=== PATIENT | female | born 1980 | race Two or more races ===

== ENCOUNTER 2019-01-22 06:13 | Inpatient (IN) | payer SELFPAY ==
[~2019-01-22] VITALS: Ht 172.7 cm; Wt 81.6 kg
[2019-01-22] VITALS (11 sets, daily range): BP systolic 106–142; BP diastolic 66–85
[2019-01-22] MEDS ORDERED: fentaNYL PF VIAL 100 MCG/2 ML VIAL IV ONE (06:45)
[2019-01-22] MEDS ORDERED: LIDO:MAALOX 1:1 20 ML SINGLE DOSE. SWSW ONE (06:45)
--- NOTE | 2019-01-22 06:48 | PHYS DOC ---
Adult General Chief Complaint Chief Complaint: ABDOMINAL PAIN HPI HPI Patient is a Micronesian speaking 38 year old female who presents with abdominal pain. Onset was last night at 5pm. She states the pain is located in the epigastric area. The pain has been constant and she describes the pain as burning. Nonradiating and rated a 10/10. This has never happened before. She complains of nausea and vomiting x6. Denies diarrhea, recent illness, fever, chills, CP, or SOA. [] Review of Systems Review of Systems Constitutional: Denies fever or chills [] Eyes: Denies change in visual acuity, redness, or eye pain [] HENT: Denies nasal congestion or sore throat [] Respiratory: Denies cough or shortness of breath [] Cardiovascular: No additional information not addressed in HPI [] GI: Abdominal pain, nausea, vomiting. Denies bloody stools or diarrhea or hematemesis [] : Denies dysuria or hematuria [] Musculoskeletal: Denies back pain or joint pain [] Integument: Denies rash or skin lesions [] Neurologic: Denies headache, focal weakness or sensory changes [] Endocrine: Denies polyuria or polydipsia [] All other systems were reviewed and found to be within normal limits, except as documented in this note. Current Medications Current Medications Current Medications Medications (Trade) Dose Ordered Sig/Murali Start Time Stop Time Status Last Admin Dose Admin Fentanyl Citrate (Fentanyl 2ml Vial) 50 mcg 1X ONCE 01/22/19 06:45 01/22/19 06:47 DC 01/22/19 07:24 50 MCG Info (CONTRAST GIVEN -- Rx MONITORING) 1 each PRN DAILY PRN 01/22/19 08:15 01/24/19 08:14 Iohexol (Omnipaque 300 Mg/ml) 75 ml 1X ONCE 01/22/19 08:15 01/22/19 08:16 DC 01/22/19 08:22 75 ML Lactobacillus Rhamnosus (Culturelle) 1 cap BID 01/22/19 10:00 Morphine Sulfate (Morphine Sulfate) 4 mg PRN Q2HR PRN 01/22/19 09:15 01/23/19 09:14 Multi-Ingredient Mouthwash/Gargle (Gi Cocktail) 20 ml 1X ONCE 01/22/19 06:45 01/22/19 06:47 DC 01/22/19 07:26 20 ML Ondansetron HCl (Zofran) 4 mg PRN Q8HRS PRN 01/22/19 09:15 01/23/19 09:14 Piperacillin Sod/ Tazobactam Sod (Zosyn Per Pharmacy) 1 each PRN DAILY PRN 01/22/19 09:15 Piperacillin Sod/ Tazobactam Sod 3.375 gm/Sodium Chloride 50 ml @ 100 mls/hr Q6HRS 01/22/19 10:00 Sodium Chloride 1,000 ml @ 100 mls/hr Q10H 01/22/19 09:11 01/23/19 09:10 Allergies Allergies Allergies Coded Allergies Type Severity Reaction Last Updated Verified No Known Drug Allergies 01/22/19 No Physical Exam Physical Exam Constitutional: Well developed, well nourished, mild distress, non-toxic appearance. [] HENT: Normocephalic, atraumatic, bilateral external ears normal, oropharynx moist, no oral exudates, nose normal. [] Eyes: PERRLA, EOMI, conjunctiva normal, no discharge. [] Neck: Normal range of motion, no tenderness, supple, no stridor. [] Cardiovascular:Heart rate regular rhythm, no murmur [] Lungs & Thorax: Bilateral breath sounds clear to auscultation [] Abdomen: Bowel sounds normal, soft, tenderness to palpation at epigastric and RUQ AND ON REEXAM DID HAVE DEVELOPING RLQ TTP, no masses, no pulsatile masses. [ ] Skin: Warm, dry, no erythema, no rash. [] Back: No tenderness, no CVA tenderness. [] Extremities: No tenderness, no cyanosis, no clubbing, ROM intact, no edema. [] Neurologic: Alert and oriented X 3, normal motor function, normal sensory function, no focal deficits noted. [] Psychologic: Affect normal, judgement normal, mood normal. [] Current Patient Data Vital Signs Vital Signs Date Time Temp Pulse Resp B/P (MAP) Pulse Ox O2 Delivery O2 Flow Rate FiO2 01/22/19 07:24 82 17 133/81 (98) 98 Room Air 01/22/19 06:20 97.6 97.6 Lab Values Laboratory Tests Test 01/22/19 06:20 01/22/19 06:28 01/22/19 06:40 Urine Collection Type Unknown Urine Color Yellow Urine Clarity Cloudy Urine pH 8.0 Urine Specific [place] 1.025 Urine Protein 30 mg/dL (NEG-TRACE) Urine Glucose (UA) 100 mg/dL (NEG) Urine Ketones (Stick) 40 mg/dL (NEG) Urine Blood Small (NEG) Urine Nitrite Negative (NEG) Urine Bilirubin Negative (NEG) Urine Urobilinogen Dipstick 0.2 mg/dL (0.2 mg/dL) Urine Leukocyte Esterase Small (NEG) Urine RBC 1-2 /HPF (0-2) Urine WBC 1-4 /HPF (0-4) Urine Squamous Epithelial Cells Few /LPF Urine Amorphous Sediment Present /HPF Urine Bacteria Few /HPF (0-FEW) Urine Mucus Slight /LPF POC Urine HCG, Qualitative Hcg negative (Negative) White Blood Count 19.5 x10^3/uL (4.0-11.0) H Red Blood Count 4.50 x10^6/uL (3.50-5.40) Hemoglobin 14.0 g/dL (12.0-15.5) Hematocrit 40.8 % (36.0-47.0) Mean Corpuscular Volume 91 fL (79-100) Mean Corpuscular Hemoglobin 31 pg (25-35) Mean Corpuscular Hemoglobin Concent 34 g/dL (31-37) Red Cell Distribution Width 13.2 % (11.5-14.5) Platelet Count 286 x10^3/uL (140-400) Neutrophils (%) (Auto) 90 % (31-73) H Lymphocytes (%) (Auto) 4 % (24-48) L Monocytes (%) (Auto) 6 % (0-9) Eosinophils (%) (Auto) 0 % (0-3) Basophils (%) (Auto) 0 % (0-3) Neutrophils # (Auto) 17.6 x10^3uL (1.8-7.7) H Lymphocytes # (Auto) 0.7 x10^3/uL (1.0-4.8) L Monocytes # (Auto) 1.1 x10^3/uL (0.0-1.1) Eosinophils # (Auto) 0.0 x10^3/uL (0.0-0.7) Basophils # (Auto) 0.0 x10^3/uL (0.0-0.2) Platelet Estimate Pending Sodium Level 135 mmol/L (136-145) L Potassium Level 3.1 mmol/L (3.5-5.1) L Chloride Level 99 mmol/L (98-107) Carbon Dioxide Level 23 mmol/L (21-32) Anion Gap 13 (6-14) Blood Urea Nitrogen 10 mg/dL (7-20) Creatinine 0.6 mg/dL (0.6-1.0) Estimated GFR (Cockcroft-Gault) 111.3 BUN/Creatinine Ratio 17 (6-20) Glucose Level 183 mg/dL (70-99) H Calcium Level 8.7 mg/dL (8.5-10.1) Total Bilirubin 0.5 mg/dL (0.2-1.0) Aspartate Amino Transferase (AST) 13 U/L (15-37) L Alanine Aminotransferase (ALT) 24 U/L (14-59) Alkaline Phosphatase 90 U/L (46-116) Troponin I Quantitative < 0.017 ng/mL (0.000-0.055) Total Protein 8.0 g/dL (6.4-8.2) Albumin 3.7 g/dL (3.4-5.0) Albumin/Globulin Ratio 0.9 (1.0-1.7) L Lipase 66 U/L (73-393) L Laboratory Tests 01/22/19 06:40 Laboratory Tests 01/22/19 06:40 EKG EKG [] Radiology/Procedures Radiology/Procedures ABDOMEN LTD Impressions: IMPRESSION: 1. There has been a cholecystectomy. 2. Otherwise essentially unremarkable sonographic survey of the right upper quadrant. IMPRESSION: 1. Mild acute appendicitis. 2. Transverse colon diverticulosis without diverticulitis. Electronically signed by: Maurice Interiano MD (01/22/2019 8:47 AM) [id number] DICTATED and SIGNED BY: MAURICE INTERIANO MD DATE: 01/22/19 0847 Course & Med Decision Making Course & Med Decision Making Pertinent Labs and Imaging studies reviewed. (See chart for details) []Acute appendicitis initially came in with epigastric pains we did an ultrasound but she has had her gallbladder removed white count 19 CT shows 10 mm appendix Zosyn was ordered as per Dr. iCfuentes at 9:20 AM for consult Admit to Dr. Therese Marshall Disclaimer Joanna Disclaimer This electronic medical record was generated, in whole or in part, using a voice recognition dictation system. Departure Departure Impression: Primary Impression: Appendicitis Disposition: ADMITTED INPATIENT Admitting Physician: Jennifer Saleh Condition: STABLE Referrals: NO PCP (PCP) CLAU WHALEN MD Jan 22, 2019 06:48
[2019-01-22 06:53] LABS: BASO % 0 % (0-3); EOS % 0 % (0-3); HEMATOCRIT 40.8 % (36.0-47.0); LYMPH # 0.7 x10^3/uL (1.0-4.8); LYMPH % 4 % (24-48); MEAN CORPUSCULAR HEMOGLOBIN 31 pg (25-35); MEAN CORPUSCULAR HGB CONC 34 g/dL (31-37); MEAN CORPUSCULAR VOLUME 91 fL (79-100); MONO # 1.1 x10^3/uL (0.0-1.1); MONO % 6 % (0-9); NEUT # 17.6 x10^3uL (1.8-7.7); NEUT % 90 % (31-73); PLATELET COUNT 286 x10^3/uL (140-400); RED CELL DISTRIBUTION WIDTH 13.2 % (11.5-14.5); WHITE BLOOD COUNT 19.5 x10^3/uL (4.0-11.0)
[2019-01-22 06:56] LABS: BILIRUBIN,URINE NEGATIVE (NEG); CLARITY,URINE CLOUDY; COLOR,URINE YELLOW; NITRITE,URINE NEGATIVE (NEG); PROTEIN,URINE 30 mg/dL (NEG-TRACE); UROBILINOGEN,URINE 0.2 mg/dL (0.2 mg/dL)
[2019-01-22 07:03] LABS: CALCIUM 8.7 mg/dL (8.5-10.1); CREATININE 0.6 mg/dL (0.6-1.0); GFR 111.3; POTASSIUM 3.1 mmol/L (3.5-5.1)
[2019-01-22 07:10] LABS: ALBUMIN 3.7 g/dL (3.4-5.0); ALBUMIN/GLOBULIN RATIO 0.9 (1.0-1.7); TOTAL BILIRUBIN 0.5 mg/dL (0.2-1.0)
[2019-01-22 07:10] LABS: AMORPHOUS SEDIMENT,UR PRESENT /HPF; BACTERIA,URINE FEW /HPF (0-FEW); SQUAMOUS EPITHELIAL CELL,UR FEW /LPF
--- NOTE | 2019-01-22 07:28 | RAD ---
CLINICAL HISTORY: RUQ PAIN COMPARISON: None available. TECHNIQUE: Limited ultrasound examination of the right upper quadrant of the abdomen was performed FINDINGS: Liver: The liver measures 17.7 cm in length in the right mid clavicular line. Hepatic echogenicity is normal and the margin is smooth. There is no focal abnormality of the liver. Portal and hepatic venous flow is confirmed with normal waveforms. Gallbladder/Biliary: There has been a cholecystectomy. Common bile duct measures 0.5 cm. The right kidney measures 11.4 cm in bipolar length. No focal renal lesion or hydronephrosis. There is no free fluid in the subhepatic space. Midline structures including the pancreas and IVC are obscured by overlying bowel gas. IMPRESSION: 1. There has been a cholecystectomy. 2. Otherwise essentially unremarkable sonographic survey of the right upper quadrant. Electronically signed by: Hima Mak MD (01/22/2019 7:25 AM) [id number]
[2019-01-22] MEDS ORDERED: IOHEXOL 300 MG/ML 100ML VIAL. IV ONE (08:15)
[2019-01-22] MEDS ORDERED: CONTRAST GIVEN. MC PRN (08:15)
--- NOTE | 2019-01-22 08:25 | EKG ---
[facility] [address] [place] [address] Test Date: 2019-01-22 Test Time: 06:52:05 Pat Name: SHASHI TOLENTINO Department: Room: Gender: F Store Mgr: : [id number] Requested By: CLAU WHALEN Order Number: [id number] Reading MD: Caleb Michele MD Measurements Intervals [place] Rate: 84 P: 37 DE: 146 QRS: 43 QRSD: 90 T: 7 QT: 358 QTc: 426 Interpretive Statements SINUS RHYTHM NON SPECIFIC T ABNORMALITY Electronically Signed On 01-26-2019 14:54:41 CDT by Caleb Michele MD
--- NOTE | 2019-01-22 08:49 | RAD ---
PQRS Compliance Statement: One or more of the following individualized dose reduction techniques were utilized for this examination: 1. Automated exposure control 2. Adjustment of the mA and/or kV according to patient size 3. Use of iterative reconstruction technique CT ABD PELV W/ IV CONTRST ONLY Clinical Indication: EPIGASTRIC PAIN AND VOMITING X 1700 Comparison: None. Technique: Helical CT imaging of the abdomen and pelvis is performed after 75 cc of Omnipaque 300 IV contrast. Oral contrast not given. Findings: Lung bases essentially clear. Cardiac size is normal. Cholecystectomy. Liver, spleen, pancreas, adrenal glands, abdominal aorta, and kidneys are normal. Stomach unremarkable. There is no dilated small bowel. The appendix caliber is dilated measuring up to 10 mm. Wall is ill-defined. There is mild periappendiceal inflammation. There is no periappendiceal abscess. There is no perforation. Diverticula of the transverse colon without inflammation. No colon wall thickening. No abdominal adenopathy or free fluid. Urinary bladder is normal. IUD in the uterus. Right ovary is not seen. The left is unremarkable. There is a fat-containing periumbilical hernia. There is no pelvic free fluid. There is minimal grade 1 retrolisthesis of L5 on S1. Bilateral osteitis condensans ilii. Small probable bone island of the left superior acetabulum. IMPRESSION: 1. Mild acute appendicitis. 2. Transverse colon diverticulosis without diverticulitis. Electronically signed by: Maurice Interiano MD (01/22/2019 8:47 AM) [id number]
[2019-01-22] MEDS ORDERED: BUPIVACAINE-EPI 0.25%-1:200000 MPF 30 ML VIAL. ONE (09:04)
[2019-01-22] MEDS: IV NORMAL SALINE 1000ML BAG 1,000 ML IV SCH ×2 (09:11→19:11)
[2019-01-22] MEDS ORDERED: PIP/TAZO PER PHARMACY MC PRN (09:15)
[2019-01-22] MEDS ORDERED: MORPHINE SULFATE 4 MG/ML VIAL. IV PRN (09:15)
[2019-01-22] MEDS ORDERED: ONDANSETRON PF 4 MG/2 ML VIAL. IV PRN ×3 (09:15→12:00)
[2019-01-22] MEDS ORDERED: IV RINGERS,LACTATED 1000ML 1,000 ML IV SCH (09:37)
[2019-01-22] MEDS ORDERED: LIDOCAINE 1% PF 2 ML VIAL. ID PRN (09:45)
[2019-01-22] MEDS ORDERED: fentaNYL PF VIAL 100 MCG/2 ML VIAL IV PRN ×2 (09:45)
[2019-01-22] MEDS ORDERED: HYDROmorphone 2 MG/ML VIAL IV PRN (09:45)
[2019-01-22] MEDS ORDERED: PROCHLORPERAZINE 10 MG/2 ML VIAL. IV PRN (09:45)
[2019-01-22] MEDS ORDERED: MORPHINE SULFATE 2 MG/ML VIAL. IV PRN ×2 (09:45→12:00)
[2019-01-22] MEDS: PIPERACILLIN/TAZOBACTAM 3.375 GM in IV NORMAL SALINE 50ML 50 ML IV SCH ×3 (09:58→23:28)
[2019-01-22] MEDS: LACTOBACILLUS RHAMNOSUS GG 1 CAPSULE. PO SCH ×2 (10:00→20:51)
[2019-01-22] MEDS ORDERED: MIDAZOLAM HCL/PF 2 MG/2 ML VIAL. ONE (10:16)
[2019-01-22] MEDS ORDERED: fentaNYL PF VIAL 100 MCG/2 ML VIAL ONE ×2 (10:17→11:59)
[2019-01-22] MEDS ORDERED: ROCURONIUM 50 MG/5 ML VIAL. ONE (10:17)
[2019-01-22] MEDS ORDERED: SUCCINYLCHOLINE 200 MG/10 ML VIAL. ONE (10:18)
[2019-01-22] MEDS ORDERED: DEXAMETHASONE SOD PHOS 20 MG/5 ML VIAL. ONE (10:54)
--- NOTE | 2019-01-22 10:54 | PDOC2 ---
CONSULT Date of Consult Date of Consult DATE: 01/22/19 TIME: 10:51 Reason for Consult Reason for Consult: Abdominal pain nausea vomiting Referring Physician Referring Physician: Therese Identification/Chief Complaint Chief Complaint Abdominal pain Source Source: Patient History of Present Illness Reason for Visit: Spoke to patient via patch driller 38-year-old female speaks Kosovan only complaining 24-hour history of right lower quadrant abdominal pain nausea and vomiting Past Medical History Cardiovascular: No pertinent hx Pulmonary: No pertinent hx GI: No pertinent hx Heme/Onc: No pertinent hx Hepatobiliary: No pertinent hx Psych: No pertinent hx Rheumatologic: No pertinent hx Infectious disease: No pertinent hx ENT: No pertinent hx Endocrine: No pertinent hx Dermatology: No pertinent hx Past Surgical History Past Surgical History: Cholecystectomy, Other (removal of ovary) Family History Family History: No Significant Social History No ALCOHOL: none Drugs: None Lives: with Family Current Problem List Problem List Problems Medical Problems: (1) Appendicitis Status: Acute Current Medications Current Medications Current Medications Multi-Ingredient Mouthwash/Gargle (Gi Cocktail) 20 ml 1X ONCE SWSW Last administered on 01/22/19at 07:26; Start 01/22/19 at 06:45; Stop 01/22/19 at 06:47; Status DC Fentanyl Citrate (Fentanyl 2ml Vial) 50 mcg 1X ONCE IV Last administered on 01/22/19at 07:24; Start 01/22/19 at 06:45; Stop 01/22/19 at 06:47; Status DC Iohexol (Omnipaque 300 Mg/ml) 75 ml 1X ONCE IV Last administered on 01/22/19at 08:22; Start 01/22/19 at 08:15; Stop 01/22/19 at 08:16; Status DC Info (CONTRAST GIVEN -- Rx MONITORING) 1 each PRN DAILY PRN MC SEE COMMENTS; Start 01/22/19 at 08:15; Stop 01/24/19 at 08:14 Ondansetron HCl (Zofran) 4 mg PRN Q8HRS PRN IV NAUSEA/VOMITING; Start 01/22/19 at 09:15; Stop 01/23/19 at 09:14 Morphine Sulfate (Morphine Sulfate) 4 mg PRN Q2HR PRN IV PAIN; Start 01/22/19 at 09:15; Stop 01/23/19 at 09:14 Sodium Chloride 1,000 ml @ 100 mls/hr Q10H IV ; Start 01/22/19 at 09:11; Stop at 09:10 Piperacillin Sod/ Tazobactam Sod (Zosyn Per Pharmacy) 1 each PRN DAILY PRN MC SEE COMMENTS; Start 01/22/19 at 09:15 Piperacillin Sod/ Tazobactam Sod 3.375 gm/Sodium Chloride 50 ml @ 100 mls/hr Q6HRS IV Last administered on 01/22/19at 09:58; Start 01/22/19 at 10:00 Lactobacillus Rhamnosus (Culturelle) 1 cap BID PO ; Start 01/22/19 at 10:00 Ondansetron HCl (Zofran) 4 mg PRN Q6HRS PRN IV NAUSEA/VOMITING; Start 01/22/19 at 09:45; Stop 01/22/19 at 18:00 Fentanyl Citrate (Fentanyl 2ml Vial) 25 mcg PRN Q5MIN PRN IV MILD PAIN; Start 01/22/19 at 09:45; Stop 01/22/19 at 20:00 Fentanyl Citrate (Fentanyl 2ml Vial) 50 mcg PRN Q5MIN PRN IV MODERATE TO SEVERE PAIN; Start 01/22/19 at 09:45; Stop 01/22/19 at 20:00 Morphine Sulfate (Morphine Sulfate) 1 mg PRN Q10MIN PRN IV SEVERE PAIN; Start 01/22/19 at 09:45; Stop 01/22/19 at 20:00 Ringer's Solution 1,000 ml @ 30 mls/hr Q24H IV Last administered on 01/22/19at 09:58; Start 01/22/19 at 09:37; Stop 01/22/19 at 21:36 Lidocaine HCl (Xylocaine-Mpf 1% 2ml Vial) 2 ml 1X PRN PRN ID IV START; Start at 09:45; Stop 01/22/19 at 20:00 Hydromorphone HCl (Dilaudid) 0.5 mg PRN Q10MIN PRN IV SEV PAIN, Second choice; Start 01/22/19 at 09:45; Stop 01/22/19 at 20:00 Prochlorperazine Edisylate (Compazine) 5 mg PACU PRN PRN IV NAUSEA, MRX1; Start 01/22/19 at 09:45; Stop 01/22/19 at 20:00 Bupivacaine HCl/ Epinephrine Bitart (Sensorcaine-Epi 0.25%-1:129195 Mpf) 30 ml STK-MED ONCE .ROUTE ; Start 01/22/19 at 09:04; Stop 01/22/19 at 10:04; Status DC Midazolam HCl (Versed) 2 mg STK-MED ONCE .ROUTE ; Start 01/22/19 at 10:16; Stop 01/22/19 at 10:17; Status DC Fentanyl Citrate (Fentanyl 2ml Vial) 100 mcg STK-MED ONCE .ROUTE ; Start at 10:17; Stop 01/22/19 at 10:18; Status DC Rocuronium [place] (Zemuron) 50 mg STK-MED ONCE .ROUTE ; Start 01/22/19 at 10:17 ; Stop 01/22/19 at 10:18; Status DC Succinylcholine Chloride (Anectine) 200 mg STK-MED ONCE .ROUTE ; Start 01/22/19 at 10:18; Stop 01/22/19 at 10:19; Status DC Allergies Allergies: Coded Allergies: No Known Drug Allergies (Unverified , 01/22/19) ROS Gastrointestinal: Yes Nausea, Yes Vomiting, Yes Abdominal Pain Physical Exam General: Alert, Oriented X3, Cooperative, mild distress HEENT: Atraumatic, PERRLA, EOMI Lungs: Clear to auscultation, Normal air movement Heart: Regular rate, No murmurs Abdomen: Normal bowel sounds, Soft, Other (tender to palpation right lower quadrant) Extremities: No edema Skin: No significant lesion Neuro: Normal speech Psych/Mental Status: Mental status NL Vitals VITALS Vital Signs Date Time Temp Pulse Resp B/P (MAP) Pulse Ox O2 Delivery O2 Flow Rate FiO2 01/22/19 07:54 72 16 120/78 (92) 97 Room Air 01/22/19 06:20 97.6 97.6 Labs Labs Laboratory Tests Test 01/22/19 06:20 01/22/19 06:28 01/22/19 06:40 Urine Collection Type Unknown Urine Color Yellow Urine Clarity Cloudy Urine pH 8.0 Urine Specific [place] 1.025 Urine Protein 30 mg/dL (NEG-TRACE) Urine Glucose (UA) 100 mg/dL (NEG) Urine Ketones (Stick) 40 mg/dL (NEG) Urine Blood Small (NEG) Urine Nitrite Negative (NEG) Urine Bilirubin Negative (NEG) Urine Urobilinogen Dipstick 0.2 mg/dL (0.2 mg/dL) Urine Leukocyte Esterase Small (NEG) Urine RBC 1-2 /HPF (0-2) Urine WBC 1-4 /HPF (0-4) Urine Squamous Epithelial Cells Few /LPF Urine Amorphous Sediment Present /HPF Urine Bacteria Few /HPF (0-FEW) Urine Mucus Slight /LPF Bedside Urine HCG, Qualitative Hcg negative (Negative) White Blood Count 19.5 x10^3/uL (4.0-11.0) Red Blood Count 4.50 x10^6/uL (3.50-5.40) Hemoglobin 14.0 g/dL (12.0-15.5) Hematocrit 40.8 % (36.0-47.0) Mean Corpuscular Volume 91 fL (79-100) Mean Corpuscular Hemoglobin 31 pg (25-35) Mean Corpuscular Hemoglobin Concent 34 g/dL (31-37) Red Cell Distribution Width 13.2 % (11.5-14.5) Platelet Count 286 x10^3/uL (140-400) Neutrophils (%) (Auto) 90 % (31-73) Lymphocytes (%) (Auto) 4 % (24-48) Monocytes (%) (Auto) 6 % (0-9) Eosinophils (%) (Auto) 0 % (0-3) Basophils (%) (Auto) 0 % (0-3) Neutrophils # (Auto) 17.6 x10^3uL (1.8-7.7) Lymphocytes # (Auto) 0.7 x10^3/uL (1.0-4.8) Monocytes # (Auto) 1.1 x10^3/uL (0.0-1.1) Eosinophils # (Auto) 0.0 x10^3/uL (0.0-0.7) Basophils # (Auto) 0.0 x10^3/uL (0.0-0.2) Sodium Level 135 mmol/L (136-145) Potassium Level 3.1 mmol/L (3.5-5.1) Chloride Level 99 mmol/L (98-107) Carbon Dioxide Level 23 mmol/L (21-32) Anion Gap 13 (6-14) Blood Urea Nitrogen 10 mg/dL (7-20) Creatinine 0.6 mg/dL (0.6-1.0) Estimated GFR (Cockcroft-Gault) 111.3 BUN/Creatinine Ratio 17 (6-20) Glucose Level 183 mg/dL (70-99) Calcium Level 8.7 mg/dL (8.5-10.1) Total Bilirubin 0.5 mg/dL (0.2-1.0) Aspartate Amino Transf (AST/SGOT) 13 U/L (15-37) Alanine Aminotransferase (ALT/SGPT) 24 U/L (14-59) Alkaline Phosphatase 90 U/L (46-116) Troponin I Quantitative < 0.017 ng/mL (0.000-0.055) Total Protein 8.0 g/dL (6.4-8.2) Albumin 3.7 g/dL (3.4-5.0) Albumin/Globulin Ratio 0.9 (1.0-1.7) Lipase 66 U/L (73-393) Laboratory Tests Test 01/22/19 06:20 01/22/19 06:28 01/22/19 06:40 Urine Collection Type Unknown Urine Color Yellow Urine Clarity Cloudy Urine pH 8.0 Urine Specific [place] 1.025 Urine Protein 30 mg/dL (NEG-TRACE) Urine Glucose (UA) 100 mg/dL (NEG) Urine Ketones (Stick) 40 mg/dL (NEG) Urine Blood Small (NEG) Urine Nitrite Negative (NEG) Urine Bilirubin Negative (NEG) Urine Urobilinogen Dipstick 0.2 mg/dL (0.2 mg/dL) Urine Leukocyte Esterase Small (NEG) Urine RBC 1-2 /HPF (0-2) Urine WBC 1-4 /HPF (0-4) Urine Squamous Epithelial Cells Few /LPF Urine Amorphous Sediment Present /HPF Urine Bacteria Few /HPF (0-FEW) Urine Mucus Slight /LPF Bedside Urine HCG, Qualitative Hcg negative (Negative) White Blood Count 19.5 x10^3/uL (4.0-11.0) Red Blood Count 4.50 x10^6/uL (3.50-5.40) Hemoglobin 14.0 g/dL (12.0-15.5) Hematocrit 40.8 % (36.0-47.0) Mean Corpuscular Volume 91 fL (79-100) Mean Corpuscular Hemoglobin 31 pg (25-35) Mean Corpuscular Hemoglobin Concent 34 g/dL (31-37) Red Cell Distribution Width 13.2 % (11.5-14.5) Platelet Count 286 x10^3/uL (140-400) Neutrophils (%) (Auto) 90 % (31-73) Lymphocytes (%) (Auto) 4 % (24-48) Monocytes (%) (Auto) 6 % (0-9) Eosinophils (%) (Auto) 0 % (0-3) Basophils (%) (Auto) 0 % (0-3) Neutrophils # (Auto) 17.6 x10^3uL (1.8-7.7) Lymphocytes # (Auto) 0.7 x10^3/uL (1.0-4.8) Monocytes # (Auto) 1.1 x10^3/uL (0.0-1.1) Eosinophils # (Auto) 0.0 x10^3/uL (0.0-0.7) Basophils # (Auto) 0.0 x10^3/uL (0.0-0.2) Sodium Level 135 mmol/L (136-145) Potassium Level 3.1 mmol/L (3.5-5.1) Chloride Level 99 mmol/L (98-107) Carbon Dioxide Level 23 mmol/L (21-32) Anion Gap 13 (6-14) Blood Urea Nitrogen 10 mg/dL (7-20) Creatinine 0.6 mg/dL (0.6-1.0) Estimated GFR (Cockcroft-Gault) 111.3 BUN/Creatinine Ratio 17 (6-20) Glucose Level 183 mg/dL (70-99) Calcium Level 8.7 mg/dL (8.5-10.1) Total Bilirubin 0.5 mg/dL (0.2-1.0) Aspartate Amino Transf (AST/SGOT) 13 U/L (15-37) Alanine Aminotransferase (ALT/SGPT) 24 U/L (14-59) Alkaline Phosphatase 90 U/L (46-116) Troponin I Quantitative < 0.017 ng/mL (0.000-0.055) Total Protein 8.0 g/dL (6.4-8.2) Albumin 3.7 g/dL (3.4-5.0) Albumin/Globulin Ratio 0.9 (1.0-1.7) Lipase 66 U/L (73-393) Images Images CT scan of the abdomen showing signs consistent with acute appendicitis no abscess Assessment/Plan Assessment/Plan Acute appendicitis plan lap scopic appendectomy JAMAL ATKINSON MD Jan 22, 2019 10:54
[2019-01-22] MEDS ORDERED: NEOSTIGMINE METHYLSULFATE 5 MG/5 ML SYRINGE. ONE (10:56)
[2019-01-22] MEDS ORDERED: GLYCOPYRROLATE 1 MG/5 ML VIAL. ONE (10:57)
[2019-01-22] MEDS ORDERED: cefTRIAXone IV Push 1 GM VIAL. IVP SCH (11:00)
[2019-01-22] MEDS ORDERED: PHENYLEPHRINE in 0.9% NACL PF 1 MG/10 ML SYRINGE. IV ONE (11:10)
[2019-01-22] MEDS ORDERED: PROPOFOL 20 ML IV ONE (11:10)
[2019-01-22] MEDS ORDERED: LIDOCAINE 2% PF 5 ML VIAL. ONE (11:10)
[2019-01-22] MEDS ORDERED: BUPIVACAINE-EPI 0.25%-1:200000 MPF 30 ML VIAL. IJ ONE (11:35)
--- NOTE | 2019-01-22 11:37 | SSS ---
ADMIT DATE: 01/22/2019 CHIEF COMPLAINT: Abdominal pain. HISTORY OF PRESENT ILLNESS: The patient is a pleasant middle-aged female who presented with abdominal pain, rates it at 10/10. She has associated nausea. It has been occurring for several days. She tried taking some ivhf-aly-eljadoi meds that did not work. She describes it as agonizing. We did a CAT scan showing she has got appendicitis. I discussed the case with ER physician. We are going to admit the patient and consult General Surgery. She is now being examined in the preop area. PAST MEDICAL HISTORY: Four pregnancies and a partial hysterectomy. ALLERGIES: None. FAMILY HISTORY: Hypertension. SOCIAL HISTORY: She is . She has 4 children. She does not work at this time. MEDICATIONS: Reviewed, please refer to the MRAD. REVIEW OF SYSTEMS: GENERAL: No history of weight change, weakness or fevers. SKIN: No bruising, hair changes or rashes. EYES: No blurred, double or loss of vision. NOSE AND THROAT: No history of nosebleeds, hoarseness or sore throat. HEART: No history of palpitations, chest pain or shortness of breath on exertion. LUNGS: Denies cough, hemoptysis, wheezing or shortness of breath. GASTROINTESTINAL: She complains of abdominal pain. GENITOURINARY: No history of frequency, urgency, hesitancy or nocturia. NEUROLOGIC: Denies history of numbness, tingling, tremor or weakness. PSYCHIATRIC: No history of panic, anxiety or depression. ENDOCRINE: No history of heat or cold intolerance, polyuria or polydipsia. EXTREMITIES: Denies muscle weakness, joint pain, pain on walking or stiffness. PHYSICAL EXAMINATION: VITAL SIGNS: Temperature afebrile, pulse 90, respirations 18 and blood pressure 119/75. GENERAL: She is alert and cooperative. Her is present. HEART: Normal S1 and S2. LUNGS: Clear to auscultation. ABDOMEN: Soft. Decreased bowel sounds and tender. There are some abdominal striae. ENDOCRINE: No thyromegaly. LYMPHATICS: No cervical nodes. HEMATOPOIETIC: No bruising. PSYCHIATRIC: She is a little depressed. LABORATORY DATA: White count is 19. Electrolytes: Sodium 135, potassium 3.1, otherwise the electrolytes are normal. Glucose is 183. Troponin is 0. Urinalysis with small amount of leukocyte esterase with 1 to 4 white cells. Urine hCG was negative. ASSESSMENT AND PLAN: Appendicitis, leukocytosis, mild UTI and hypokalemia. The patient has been admitted. We have consulted General Surgery. She is now going to surgery here in the next hour or so. Postoperatively, she will need wound care, pain meds and IV fluids. Hope to discharge tomorrow. Today we are going to go ahead and give her some extra potassium and recheck her labs in the morning and some IV antibiotics. CARRIE AMBRIZ DO DR: SHYANNE/waldo JOB#: [id number] / [id number]
[2019-01-22] MEDS ORDERED: PROCHLORPERAZINE 10 MG/2 ML VIAL. ONE (11:59)
--- NOTE | 2019-01-22 11:59 | PDOC4 ---
Operative Note Operative Note Date: 01/22/2019 Preoperative diagnosis: Acute appendicitis Postoperative diagnosis: Same Procedure: Laparoscopic appendectomy Specimen: Appendix Surgeon: Esau Dictation: Patient is a 38-year-old female is admitted to the hospital with an acute appendicitis the procedure of laparoscopic appendectomy was explained to the patient in detail through an washing tub operator all risks benefits were also discussed including bleeding infection injury to intra-abdominal contents possibly necessitating further open operations alternatives to this procedure also discussed with patient who seemed to understand and gave both verbal and written consent had procedure performed. Patient was taken to the operating room placed in the supine position general anesthesia was initiated once patient was asleep and intubated her abdomen was prepped and draped usual sterile fashion using ChloraPrep and area just above the umbilicus was injected with quarter percent Marcaine with epinephrine incision was made with 11 blade scalpel Veress needle was placed within the abdomen creating a pneumoperitoneum was this was complete a 12 mm port was placed and a 5 mm camera was placed within the abdomen which was inspected no other abdomen maladies were noted other than an inflamed appendix area a 5 mm port was placed low in the midline and a second 5 mm port was placed in the right mid abdomen all under direct visualization. The appendix was grasped and retracted towards the anterior abdominal wall a window was propagated in the mesial appendix at the base the appendix and an Endo IGNACIO stapler was used to staple and transect the base the appendix a second load was used to staple and transect the mesoappendix appendix was then placed in Endo Catch bag and removed from the umbilicus. The right lower quadrant and the pelvis were irrigated with copious metastases normal saline and suctioned dry the pneumoperitoneum was reduced all ports removed the fascial defect at the umbilicus closed [id number] Vicryl suture and the skin was approximated all port sites for septic and a Monocryl Mastisol Steri-Strips and island dressings were applied. Patient was awakened and extubated in the operating room taken to recovery in stable condition all sponge instrument needle counts listed as correct estimated blood loss 10 mL JAMAL ATKINSON MD Jan 22, 2019 11:59
[2019-01-22] MEDS ORDERED: cefOXitin SODIUM IV Push 1 GM VIAL. IVP SCH (12:00)
[2019-01-22] MEDS ORDERED: oxyCODONE/APAP 5/325 1 TAB TABLET PO PRN ×2 (12:00)
[2019-01-22] MEDS ORDERED: 0.9 % SODIUM CHLORIDE 10 ML DISP.SYRIN. IV PRN (12:00)
[2019-01-22] MEDS: KETOROLAC 15 MG/ML VIAL. IV SCH ×3 (13:00→23:27)
[2019-01-22] MEDS: IV DEXTROSE 5%-LACT RINGERS 1,000 ML IV SCH (13:00)
[2019-01-22 13:39] LABS: % LYMPHS 4 % (24-48); % MONOS 6 % (0-10); % SEGS 90 % (35-66); PLT ESTIMATE ADEQUATE (ADEQUATE)
--- NOTE | 2019-01-22 19:24 | NUR ---
Per earliest fluid order, pt. is taking D5 LR @75 ml/hr not normal saline. Non administered at 191
[2019-01-22] MEDS ORDERED: POTASSIUM CHLORIDE 20 MEQ TABLET.ER. PO ONE ×2 (20:15→22:15)
[2019-01-23 03:00] VITALS: BP 98/62
[2019-01-23] MEDS: IV DEXTROSE 5%-LACT RINGERS 1,000 ML IV SCH ×3 (03:06→23:05)
[2019-01-23 04:35] LABS: BASO % 0 % (0-3); EOS % 0 % (0-3); HEMATOCRIT 37.6 % (36.0-47.0); HEMOGLOBIN 12.5 g/dL (12.0-15.5); LYMPH # 2.1 x10^3/uL (1.0-4.8); LYMPH % 15 % (24-48); MEAN CORPUSCULAR HEMOGLOBIN 31 pg (25-35); MEAN CORPUSCULAR HGB CONC 33 g/dL (31-37); MEAN CORPUSCULAR VOLUME 93 fL (79-100); MONO # 0.8 x10^3/uL (0.0-1.1); MONO % 6 % (0-9); NEUT # 10.8 x10^3uL (1.8-7.7); NEUT % 79 % (31-73); PLATELET COUNT 275 x10^3/uL (140-400); RED BLOOD COUNT 4.06 x10^6/uL (3.50-5.40); RED CELL DISTRIBUTION WIDTH 13.8 % (11.5-14.5); WHITE BLOOD COUNT 13.8 x10^3/uL (4.0-11.0)
[2019-01-23] MEDS: IV NORMAL SALINE 1000ML BAG 1,000 ML IV SCH (05:11)
[2019-01-23] MEDS: KETOROLAC 15 MG/ML VIAL. IV SCH ×4 (05:39→23:43)
[2019-01-23] MEDS: PIPERACILLIN/TAZOBACTAM 3.375 GM in IV NORMAL SALINE 50ML 50 ML IV SCH ×4 (05:39→23:43)
[2019-01-23 07:00] VITALS: BP 119/79
--- NOTE | 2019-01-23 07:49 | PDOC ---
PROGRESS NOTES Chief Complaint Chief Complaint Acute appendicitis Sepsis Hypokalemia History of Present Illness History of Present Illness Mrs Osei is a 38yo female who presented with abdominal pain, rated at 10/10. She has associated nausea, and leukocytosis, tachycardia, sepsis, found on a CAT scan showing she had appendicitis. To OR 4/5 for laparascopic appy Feeling ok today, still with some pain. Taking PO well, passing flatus. WBC still elevated. Denies leg swelling, SOB or CP. Plan: CBC, K, mag tomorrow morning D/c tomorrow if WBC improved Vitals Vitals Vital Signs Date Time Temp Pulse Resp B/P (MAP) Pulse Ox O2 Delivery O2 Flow Rate FiO2 01/23/19 03:00 98.1 81 18 98/62 (74) 94 Room Air 98.1 01/22/19 12:18 10 Physical Exam General: Alert, Oriented X3, Cooperative, mild distress Heart: Regular rate, No murmurs Abdomen: Normal bowel sounds, Soft, Other (tender to palpation right lower quadrant) Extremities: No edema Skin: No significant lesion Labs LABS Laboratory Tests Test 01/23/19 04:05 White Blood Count 13.8 x10^3/uL (4.0-11.0) Red Blood Count 4.06 x10^6/uL (3.50-5.40) Hemoglobin 12.5 g/dL (12.0-15.5) Hematocrit 37.6 % (36.0-47.0) Mean Corpuscular Volume 93 fL (79-100) Mean Corpuscular Hemoglobin 31 pg (25-35) Mean Corpuscular Hemoglobin Concent 33 g/dL (31-37) Red Cell Distribution Width 13.8 % (11.5-14.5) Platelet Count 275 x10^3/uL (140-400) Neutrophils (%) (Auto) 79 % (31-73) Lymphocytes (%) (Auto) 15 % (24-48) Monocytes (%) (Auto) 6 % (0-9) Eosinophils (%) (Auto) 0 % (0-3) Basophils (%) (Auto) 0 % (0-3) Neutrophils # (Auto) 10.8 x10^3uL (1.8-7.7) Lymphocytes # (Auto) 2.1 x10^3/uL (1.0-4.8) Monocytes # (Auto) 0.8 x10^3/uL (0.0-1.1) Eosinophils # (Auto) 0.0 x10^3/uL (0.0-0.7) Basophils # (Auto) 0.0 x10^3/uL (0.0-0.2) Assessment and Plan Assessmemt and Plan Problems Medical Problems: (1) Appendicitis Status: Acute Comment Review of Relevant I have reviewed the following items carlos manuel (where applicable) has been applied. Labs Laboratory Tests Test 01/22/19 06:20 01/22/19 06:28 01/22/19 06:40 01/23/19 04:05 Urine Collection Type Unknown Urine Color Yellow Urine Clarity Cloudy Urine pH 8.0 Urine Specific [place] 1.025 Urine Protein 30 mg/dL (NEG-TRACE) Urine Glucose (UA) 100 mg/dL (NEG) Urine Ketones (Stick) 40 mg/dL (NEG) Urine Blood Small (NEG) Urine Nitrite Negative (NEG) Urine Bilirubin Negative (NEG) Urine Urobilinogen Dipstick 0.2 mg/dL (0.2 mg/dL) Urine Leukocyte Esterase Small (NEG) Urine RBC 1-2 /HPF (0-2) Urine WBC 1-4 /HPF (0-4) Urine Squamous Epithelial Cells Few /LPF Urine Amorphous Sediment Present /HPF Urine Bacteria Few /HPF (0-FEW) Urine Mucus Slight /LPF Bedside Urine HCG, Qualitative Hcg negative (Negative) White Blood Count 19.5 x10^3/uL (4.0-11.0) 13.8 x10^3/uL (4.0-11.0) Red Blood Count 4.50 x10^6/uL (3.50-5.40) 4.06 x10^6/uL (3.50-5.40) Hemoglobin 14.0 g/dL (12.0-15.5) 12.5 g/dL (12.0-15.5) Hematocrit 40.8 % (36.0-47.0) 37.6 % (36.0-47.0) Mean Corpuscular Volume 91 fL (79-100) 93 fL (79-100) Mean Corpuscular Hemoglobin 31 pg (25-35) 31 pg (25-35) Mean Corpuscular Hemoglobin Concent 34 g/dL (31-37) 33 g/dL (31-37) Red Cell Distribution Width 13.2 % (11.5-14.5) 13.8 % (11.5-14.5) Platelet Count 286 x10^3/uL (140-400) 275 x10^3/uL (140-400) Neutrophils (%) (Auto) 90 % (31-73) 79 % (31-73) Lymphocytes (%) (Auto) 4 % (24-48) 15 % (24-48) Monocytes (%) (Auto) 6 % (0-9) 6 % (0-9) Eosinophils (%) (Auto) 0 % (0-3) 0 % (0-3) Basophils (%) (Auto) 0 % (0-3) 0 % (0-3) Neutrophils # (Auto) 17.6 x10^3uL (1.8-7.7) 10.8 x10^3uL (1.8-7.7) Lymphocytes # (Auto) 0.7 x10^3/uL (1.0-4.8) 2.1 x10^3/uL (1.0-4.8) Monocytes # (Auto) 1.1 x10^3/uL (0.0-1.1) 0.8 x10^3/uL (0.0-1.1) Eosinophils # (Auto) 0.0 x10^3/uL (0.0-0.7) 0.0 x10^3/uL (0.0-0.7) Basophils # (Auto) 0.0 x10^3/uL (0.0-0.2) 0.0 x10^3/uL (0.0-0.2) Segmented Neutrophils % 90 % (35-66) Lymphocytes % 4 % (24-48) Monocytes % 6 % (0-10) Platelet Estimate Adequate (ADEQUATE) Sodium Level 135 mmol/L (136-145) Potassium Level 3.1 mmol/L (3.5-5.1) Chloride Level 99 mmol/L (98-107) Carbon Dioxide Level 23 mmol/L (21-32) Anion Gap 13 (6-14) Blood Urea Nitrogen 10 mg/dL (7-20) Creatinine 0.6 mg/dL (0.6-1.0) Estimated GFR (Cockcroft-Gault) 111.3 BUN/Creatinine Ratio 17 (6-20) Glucose Level 183 mg/dL (70-99) Calcium Level 8.7 mg/dL (8.5-10.1) Total Bilirubin 0.5 mg/dL (0.2-1.0) Aspartate Amino Transf (AST/SGOT) 13 U/L (15-37) Alanine Aminotransferase (ALT/SGPT) 24 U/L (14-59) Alkaline Phosphatase 90 U/L (46-116) Troponin I Quantitative < 0.017 ng/mL (0.000-0.055) Total Protein 8.0 g/dL (6.4-8.2) Albumin 3.7 g/dL (3.4-5.0) Albumin/Globulin Ratio 0.9 (1.0-1.7) Lipase 66 U/L (73-393) Laboratory Tests Test 01/23/19 04:05 White Blood Count 13.8 x10^3/uL (4.0-11.0) Red Blood Count 4.06 x10^6/uL (3.50-5.40) Hemoglobin 12.5 g/dL (12.0-15.5) Hematocrit 37.6 % (36.0-47.0) Mean Corpuscular Volume 93 fL (79-100) Mean Corpuscular Hemoglobin 31 pg (25-35) Mean Corpuscular Hemoglobin Concent 33 g/dL (31-37) Red Cell Distribution Width 13.8 % (11.5-14.5) Platelet Count 275 x10^3/uL (140-400) Neutrophils (%) (Auto) 79 % (31-73) Lymphocytes (%) (Auto) 15 % (24-48) Monocytes (%) (Auto) 6 % (0-9) Eosinophils (%) (Auto) 0 % (0-3) Basophils (%) (Auto) 0 % (0-3) Neutrophils # (Auto) 10.8 x10^3uL (1.8-7.7) Lymphocytes # (Auto) 2.1 x10^3/uL (1.0-4.8) Monocytes # (Auto) 0.8 x10^3/uL (0.0-1.1) Eosinophils # (Auto) 0.0 x10^3/uL (0.0-0.7) Basophils # (Auto) 0.0 x10^3/uL (0.0-0.2) Medications Current Medications Multi-Ingredient Mouthwash/Gargle (Gi Cocktail) 20 ml 1X ONCE SWSW Last administered on 01/22/19at 07:26; Start 01/22/19 at 06:45; Stop 01/22/19 at 06:47; Status DC Fentanyl Citrate (Fentanyl 2ml Vial) 50 mcg 1X ONCE IV Last administered on 01/22/19at 07:24; Start 01/22/19 at 06:45; Stop 01/22/19 at 06:47; Status DC Iohexol (Omnipaque 300 Mg/ml) 75 ml 1X ONCE IV Last administered on 01/22/19at 08:22; Start 01/22/19 at 08:15; Stop 01/22/19 at 08:16; Status DC Info (CONTRAST GIVEN -- Rx MONITORING) 1 each PRN DAILY PRN MC SEE COMMENTS; Start 01/22/19 at 08:15; Stop 01/24/19 at 08:14 Ondansetron HCl (Zofran) 4 mg PRN Q8HRS PRN IV NAUSEA/VOMITING; Start 01/22/19 at 09:15; Stop 01/23/19 at 09:14 Morphine Sulfate (Morphine Sulfate) 4 mg PRN Q2HR PRN IV PAIN; Start 01/22/19 at 09:15; Stop 01/23/19 at 09:14 Sodium Chloride 1,000 ml @ 100 mls/hr Q10H IV ; Start 01/22/19 at 09:11; Stop at 09:10 Piperacillin Sod/ Tazobactam Sod (Zosyn Per Pharmacy) 1 each PRN DAILY PRN MC SEE COMMENTS; Start 01/22/19 at 09:15 Piperacillin Sod/ Tazobactam Sod 3.375 gm/Sodium Chloride 50 ml @ 100 mls/hr Q6HRS IV Last administered on 01/23/19at 05:39; Start 01/22/19 at 10:00 Lactobacillus Rhamnosus (Culturelle) 1 cap BID PO Last administered on at 20:51; Start 01/22/19 at 10:00 Ondansetron HCl (Zofran) 4 mg PRN Q6HRS PRN IV NAUSEA/VOMITING; Start 01/22/19 at 09:45; Stop 01/22/19 at 18:00; Status DC Fentanyl Citrate (Fentanyl 2ml Vial) 25 mcg PRN Q5MIN PRN IV MILD PAIN; Start 01/22/19 at 09:45; Stop 01/22/19 at 20:00; Status DC Fentanyl Citrate (Fentanyl 2ml Vial) 50 mcg PRN Q5MIN PRN IV MODERATE TO SEVERE PAIN; Start 01/22/19 at 09:45; Stop 01/22/19 at 20:00; Status DC Morphine Sulfate (Morphine Sulfate) 1 mg PRN Q10MIN PRN IV SEVERE PAIN; Start 01/22/19 at 09:45; Stop 01/22/19 at 20:00; Status DC Ringer's Solution 1,000 ml @ 30 mls/hr Q24H IV Last administered on 01/22/19at 09:58; Start 01/22/19 at 09:37; Stop 01/22/19 at 21:36; Status DC Lidocaine HCl (Xylocaine-Mpf 1% 2ml Vial) 2 ml 1X PRN PRN ID IV START; Start at 09:45; Stop 01/22/19 at 20:00; Status DC Hydromorphone HCl (Dilaudid) 0.5 mg PRN Q10MIN PRN IV SEV PAIN, Second choice; Start 01/22/19 at 09:45; Stop 01/22/19 at 20:00; Status DC Prochlorperazine Edisylate (Compazine) 5 mg PACU PRN PRN IV NAUSEA, MRX1; Start 01/22/19 at 09:45; Stop 01/22/19 at 20:00; Status DC Bupivacaine HCl/ Epinephrine Bitart (Sensorcaine-Epi 0.25%-1:010819 Mpf) 30 ml STK-MED ONCE .ROUTE ; Start 01/22/19 at 09:04; Stop 01/22/19 at 10:04; Status DC Midazolam HCl (Versed) 2 mg STK-MED ONCE .ROUTE ; Start 01/22/19 at 10:16; Stop 01/22/19 at 10:17; Status DC Fentanyl Citrate (Fentanyl 2ml Vial) 100 mcg STK-MED ONCE .ROUTE ; Start at 10:17; Stop 01/22/19 at 10:18; Status DC Rocuronium [place] (Zemuron) 50 mg STK-MED ONCE .ROUTE ; Start 01/22/19 at 10:17 ; Stop 01/22/19 at 10:18; Status DC Succinylcholine Chloride (Anectine) 200 mg STK-MED ONCE .ROUTE ; Start 01/22/19 at 10:18; Stop 01/22/19 at 10:19; Status DC Dexamethasone Sodium Phosphate (Decadron) 20 mg STK-MED ONCE .ROUTE ; Start 01/22 at 10:54; Stop 01/22/19 at 10:55; Status DC Neostigmine Methylsulfate (Neostigmine Methylsulfate) 5 mg STK-MED ONCE .ROUTE ; Start 01/22/19 at 10:56; Stop 01/22/19 at 10:57; Status DC Glycopyrrolate (Robinul) 1 mg STK-MED ONCE .ROUTE ; Start 01/22/19 at 10:57; Stop 01/22/19 at 10:58; Status DC Ceftriaxone Sodium (Rocephin) 1 gm Q24H IVP ; Start 01/22/19 at 11:00; Status UNV Phenylephrine HCl (PHENYLEPHRINE in 0.9% NACL PF) 1 mg STK-MED ONCE IV ; Start 01/22/19 at 11:10; Stop 01/22/19 at 11:11; Status DC Propofol 20 ml @ As Directed STK-MED ONCE IV ; Start 01/22/19 at 11:10; Stop 01/22 at 11:11; Status DC Lidocaine HCl (Lidocaine Pf 2% Vial) 5 ml STK-MED ONCE .ROUTE ; Start 01/22/19 at 11:10; Stop 01/22/19 at 11:11; Status DC Bupivacaine HCl/ Epinephrine Bitart (Sensorcaine-Epi 0.25%-1:[id number] Mpf) 30 ml STK-MED ONCE IJ Last administered on 01/22/19at 11:35; Start 01/22/19 at 11:35; Stop 01/22/19 at 11:42; Status DC Fentanyl Citrate (Fentanyl 2ml Vial) 100 mcg STK-MED ONCE .ROUTE ; Start at 11:59; Stop 01/22/19 at 12:00; Status DC Prochlorperazine Edisylate (Compazine) 10 mg STK-MED ONCE .ROUTE ; Start at 11:59; Stop 01/22/19 at 12:00; Status DC Cefoxitin Sodium (Mefoxin) 1 gm Q8H IVP ; Start 01/22/19 at 12:00; Stop 01/22/19 at 12:05; Status DC Sodium Chloride (Normal Saline Flush) 3 ml QSHIFT PRN IV AFTER MEDS AND BLOOD DRAWS; Start 01/22/19 at 12:00 Morphine Sulfate (Morphine Sulfate) 2 mg PRN Q3HRS PRN IV PAIN; Start 01/22/19 at 12:00 Oxycodone/ Acetaminophen (Percocet 5/325) 1 tab PRN Q4HRS PRN PO MILD PAIN, 1ST CHOICE Last administered on 01/22/19at 16:50; Start 01/22/19 at 12:00 Oxycodone/ Acetaminophen (Percocet 5/325) 2 tab PRN Q4HRS PRN PO MODERATE PAIN , SEVERE PAIN; Start 01/22/19 at 12:00 Ketorolac Tromethamine (Toradol 15mg Vial) 15 mg Q6HRS IV Last administered on 01/23/19at 05:39; Start 01/22/19 at 13:00; Stop 01/24/19 at 12:59 Ondansetron HCl (Zofran) 4 mg PRN Q6HRS PRN IV NAUSEA, 1ST CHOICE; Start at 12:00 Dextrose/Lactated Ringer's 1,000 ml @ 75 mls/hr [id number] IV Last administered on 01/23/19at 03:06; Start 01/22/19 at 13:00 Potassium Chloride (Klor-Con) 40 meq 1X ONCE PO Last administered on 01/22/19at 20:51; Start 01/22/19 at 20:15; Stop 01/22/19 at 20:16; Status DC Potassium Chloride (Klor-Con) 40 meq 1X ONCE PO Last administered on 01/22/19at 23:28; Start 01/22/19 at 22:15; Stop 01/22/19 at 22:16; Status DC Vitals/I & O Vital Sign - Last 24 Hours 01/22/19 01/22/19 01/22/19 01/22/19 07:54 10:30 12:03 12:18 Temp 97.6 98.4 98.4 97.6 98.4 98.4 Pulse 72 72 78 83 Resp 16 15 15 B/P (MAP) 120/78 (92) 120/78 133/70 125/78 Pulse Ox 97 97 100 100 O2 Delivery Room Air Simple Mask Simple Mask O2 Flow Rate 10 10 01/22/19 01/22/19 01/22/19 01/22/19 12:33 12:48 13:18 13:20 Temp 98.4 98.4 99.1 98.4 98.4 99.1 Pulse 93 96 85 Resp 15 15 17 B/P (MAP) 119/64 125/75 123/72 (89) Pulse Ox 98 97 97 O2 Delivery Room Air Room Air Room Air Room Air 01/22/19 01/22/19 01/22/19 01/22/19 13:30 13:45 14:00 14:15 Pulse 84 91 89 88 Resp 17 17 17 17 B/P (MAP) 123/76 (92) 142/82 (102) 139/85 (103) 132/79 (96) Pulse Ox 97 97 98 98 O2 Delivery Room Air Room Air Room Air Room Air 01/22/19 01/22/19 01/22/19 01/22/19 14:30 15:00 16:00 16:50 Pulse 93 74 86 Resp 17 17 17 B/P (MAP) 123/79 (94) 134/84 (101) 131/78 (95) Pulse Ox 98 98 97 98 O2 Delivery Room Air Room Air Nasal Cannula Room Air 01/22/19 01/22/19 01/22/19 01/22/19 17:00 18:50 19:00 20:00 Temp 98.4 98.4 Pulse 107 86 Resp 17 20 18 B/P (MAP) 114/75 (88) 106/66 (79) Pulse Ox 98 95 O2 Delivery Room Air Room Air Room Air Room Air 01/22/19 01/23/19 23:00 03:00 Temp 98.4 98.1 98.4 98.1 Pulse 82 81 Resp 18 18 B/P (MAP) 107/67 (80) 98/62 (74) Pulse Ox 94 94 O2 Delivery Room Air Room Air Intake and Output 01/22/19 01/22/19 01/23/19 15:00 23:00 07:00 Intake Total 1750 ml 250 ml 900 ml Output Total 1010 ml Balance 740 ml 250 ml 900 ml RAOUL GAN MD Jan 23, 2019 07:49
--- NOTE | 2019-01-23 09:15 | PDOC ---
ALISON BHATIA [employer]INC[employer]AL 01/23/19 0915: SURGICAL PROGRESS NOTE Subjective feeling well tolerating diet Vital Signs Vital Signs Date Time Temp Pulse Resp B/P (MAP) Pulse Ox O2 Delivery O2 Flow Rate FiO2 01/23/19 07:00 98.0 69 20 119/79 (92) 97 Room Air 98.0 01/22/19 12:18 10 I&O Intake and Output 01/23/19 07:00 Intake Total 2900 ml Output Total 1010 ml Balance 1890 ml Intake Oral 1150 ml IV Total 1750 ml Output Urine Total 1000 ml Estimated Blood Loss 10 ml # Voids 7 General: Alert, Oriented X3, Cooperative, No acute distress Abdomen: Soft, Other (ND, lap dressings dry) Labs Laboratory Tests Test 01/22/19 06:20 01/22/19 06:28 01/22/19 06:40 01/23/19 04:05 Urine Collection Type Unknown Urine Color Yellow Urine Clarity Cloudy Urine pH 8.0 Urine Specific [place] 1.025 Urine Protein 30 mg/dL (NEG-TRACE) Urine Glucose (UA) 100 mg/dL (NEG) Urine Ketones (Stick) 40 mg/dL (NEG) Urine Blood Small (NEG) Urine Nitrite Negative (NEG) Urine Bilirubin Negative (NEG) Urine Urobilinogen Dipstick 0.2 mg/dL (0.2 mg/dL) Urine Leukocyte Esterase Small (NEG) Urine RBC 1-2 /HPF (0-2) Urine WBC 1-4 /HPF (0-4) Urine Squamous Epithelial Cells Few /LPF Urine Amorphous Sediment Present /HPF Urine Bacteria Few /HPF (0-FEW) Urine Mucus Slight /LPF Bedside Urine HCG, Qualitative Hcg negative (Negative) White Blood Count 19.5 x10^3/uL (4.0-11.0) 13.8 x10^3/uL (4.0-11.0) Red Blood Count 4.50 x10^6/uL (3.50-5.40) 4.06 x10^6/uL (3.50-5.40) Hemoglobin 14.0 g/dL (12.0-15.5) 12.5 g/dL (12.0-15.5) Hematocrit 40.8 % (36.0-47.0) 37.6 % (36.0-47.0) Mean Corpuscular Volume 91 fL (79-100) 93 fL (79-100) Mean Corpuscular Hemoglobin 31 pg (25-35) 31 pg (25-35) Mean Corpuscular Hemoglobin Concent 34 g/dL (31-37) 33 g/dL (31-37) Red Cell Distribution Width 13.2 % (11.5-14.5) 13.8 % (11.5-14.5) Platelet Count 286 x10^3/uL (140-400) 275 x10^3/uL (140-400) Neutrophils (%) (Auto) 90 % (31-73) 79 % (31-73) Lymphocytes (%) (Auto) 4 % (24-48) 15 % (24-48) Monocytes (%) (Auto) 6 % (0-9) 6 % (0-9) Eosinophils (%) (Auto) 0 % (0-3) 0 % (0-3) Basophils (%) (Auto) 0 % (0-3) 0 % (0-3) Neutrophils # (Auto) 17.6 x10^3uL (1.8-7.7) 10.8 x10^3uL (1.8-7.7) Lymphocytes # (Auto) 0.7 x10^3/uL (1.0-4.8) 2.1 x10^3/uL (1.0-4.8) Monocytes # (Auto) 1.1 x10^3/uL (0.0-1.1) 0.8 x10^3/uL (0.0-1.1) Eosinophils # (Auto) 0.0 x10^3/uL (0.0-0.7) 0.0 x10^3/uL (0.0-0.7) Basophils # (Auto) 0.0 x10^3/uL (0.0-0.2) 0.0 x10^3/uL (0.0-0.2) Segmented Neutrophils % 90 % (35-66) Lymphocytes % 4 % (24-48) Monocytes % 6 % (0-10) Platelet Estimate Adequate (ADEQUATE) Sodium Level 135 mmol/L (136-145) Potassium Level 3.1 mmol/L (3.5-5.1) Chloride Level 99 mmol/L (98-107) Carbon Dioxide Level 23 mmol/L (21-32) Anion Gap 13 (6-14) Blood Urea Nitrogen 10 mg/dL (7-20) Creatinine 0.6 mg/dL (0.6-1.0) Estimated GFR (Cockcroft-Gault) 111.3 BUN/Creatinine Ratio 17 (6-20) Glucose Level 183 mg/dL (70-99) Calcium Level 8.7 mg/dL (8.5-10.1) Total Bilirubin 0.5 mg/dL (0.2-1.0) Aspartate Amino Transf (AST/SGOT) 13 U/L (15-37) Alanine Aminotransferase (ALT/SGPT) 24 U/L (14-59) Alkaline Phosphatase 90 U/L (46-116) Troponin I Quantitative < 0.017 ng/mL (0.000-0.055) Total Protein 8.0 g/dL (6.4-8.2) Albumin 3.7 g/dL (3.4-5.0) Albumin/Globulin Ratio 0.9 (1.0-1.7) Lipase 66 U/L (73-393) Laboratory Tests Test 01/23/19 04:05 White Blood Count 13.8 x10^3/uL (4.0-11.0) Red Blood Count 4.06 x10^6/uL (3.50-5.40) Hemoglobin 12.5 g/dL (12.0-15.5) Hematocrit 37.6 % (36.0-47.0) Mean Corpuscular Volume 93 fL (79-100) Mean Corpuscular Hemoglobin 31 pg (25-35) Mean Corpuscular Hemoglobin Concent 33 g/dL (31-37) Red Cell Distribution Width 13.8 % (11.5-14.5) Platelet Count 275 x10^3/uL (140-400) Neutrophils (%) (Auto) 79 % (31-73) Lymphocytes (%) (Auto) 15 % (24-48) Monocytes (%) (Auto) 6 % (0-9) Eosinophils (%) (Auto) 0 % (0-3) Basophils (%) (Auto) 0 % (0-3) Neutrophils # (Auto) 10.8 x10^3uL (1.8-7.7) Lymphocytes # (Auto) 2.1 x10^3/uL (1.0-4.8) Monocytes # (Auto) 0.8 x10^3/uL (0.0-1.1) Eosinophils # (Auto) 0.0 x10^3/uL (0.0-0.7) Basophils # (Auto) 0.0 x10^3/uL (0.0-0.2) Problem List Problems Medical Problems: (1) Appendicitis Status: Acute Assessment/Plan s/p appy wbc 13.8, IV abx x 1 more day home tomorrow if WBC normal JAMAL ATKINSON MD 01/23/19 1017: SURGICAL PROGRESS NOTE Assessment/Plan Agree with [facility] assessment and plan ALISON BHATIA [employer] Jan 23, 2019 09:15 JAMAL ATKINSON MD Jan 23, 2019 10:17
[2019-01-23] MEDS: LACTOBACILLUS RHAMNOSUS GG 1 CAPSULE. PO SCH ×2 (09:41→21:23)
[2019-01-23 11:00] VITALS: BP 110/76
[2019-01-23 15:00] VITALS: BP 107/69
[2019-01-23 19:00] VITALS: BP 107/69
[2019-01-23 23:00] VITALS: BP 108/71
[2019-01-24 03:00] VITALS: BP 101/68
[2019-01-24 05:03] LABS: BASO % 1 % (0-3); EOS # 0.1 x10^3/uL (0.0-0.7); EOS % 1 % (0-3); HEMATOCRIT 37.5 % (36.0-47.0); HEMOGLOBIN 12.6 g/dL (12.0-15.5); LYMPH # 3.3 x10^3/uL (1.0-4.8); LYMPH % 50 % (24-48); MEAN CORPUSCULAR HEMOGLOBIN 31 pg (25-35); MEAN CORPUSCULAR HGB CONC 34 g/dL (31-37); MEAN CORPUSCULAR VOLUME 93 fL (79-100); MONO # 0.5 x10^3/uL (0.0-1.1); MONO % 7 % (0-9); NEUT # 2.7 x10^3uL (1.8-7.7); NEUT % 41 % (31-73); PLATELET COUNT 258 x10^3/uL (140-400); RED BLOOD COUNT 4.04 x10^6/uL (3.50-5.40); RED CELL DISTRIBUTION WIDTH 13.8 % (11.5-14.5); WHITE BLOOD COUNT 6.5 x10^3/uL (4.0-11.0)
[2019-01-24 05:33] LABS: ALBUMIN 2.5 g/dL (3.4-5.0); CALCIUM 7.8 mg/dL (8.5-10.1); CREATININE 0.5 mg/dL (0.6-1.0); GFR 137.4; PHOSPHORUS 3.4 mg/dL (2.6-4.7); POTASSIUM 3.8 mmol/L (3.5-5.1)
[2019-01-24] MEDS: PIPERACILLIN/TAZOBACTAM 3.375 GM in IV NORMAL SALINE 50ML 50 ML IV SCH ×2 (05:41→11:40)
[2019-01-24] MEDS: KETOROLAC 15 MG/ML VIAL. IV SCH ×2 (05:42→11:39)
[2019-01-24 07:00] VITALS: BP 113/79
--- NOTE | 2019-01-24 07:29 | PDOC ---
PROGRESS NOTES Chief Complaint Chief Complaint Acute appendicitis Sepsis Hypokalemia History of Present Illness History of Present Illness Mrs Osei is a 38yo female who presented with abdominal pain, rated at 10/10. She has associated nausea, and leukocytosis, tachycardia, sepsis, found on a CAT scan showing she had appendicitis. To OR 4/5 for laparascopic appy Feeling ok today, still with some pain. Taking PO well, passing flatus. WBC down. Denies leg swelling, SOB or CP. Plan: D/c as WBC improved Vitals Vitals Vital Signs Date Time Temp Pulse Resp B/P (MAP) Pulse Ox O2 Delivery O2 Flow Rate FiO2 01/24/19 03:00 98.2 79 20 101/68 (79) 98 Room Air 98.2 Physical Exam General: Alert, Oriented X3, Cooperative, No acute distress Heart: Regular rate, No murmurs Abdomen: Soft, Other (ND, lap dressings dry) Extremities: No edema Skin: No significant lesion Labs LABS Laboratory Tests Test 01/24/19 04:35 01/24/19 05:00 Sodium Level 141 mmol/L (136-145) Potassium Level 3.8 mmol/L (3.5-5.1) Chloride Level 107 mmol/L (98-107) Carbon Dioxide Level 25 mmol/L (21-32) Anion Gap 9 (6-14) Blood Urea Nitrogen 9 mg/dL (7-20) Creatinine 0.5 mg/dL (0.6-1.0) Estimated GFR (Cockcroft-Gault) 137.4 Glucose Level 123 mg/dL (70-99) Calcium Level 7.8 mg/dL (8.5-10.1) Phosphorus Level 3.4 mg/dL (2.6-4.7) Magnesium Level 2.4 mg/dL (1.8-2.4) Albumin 2.5 g/dL (3.4-5.0) White Blood Count 6.5 x10^3/uL (4.0-11.0) Red Blood Count 4.04 x10^6/uL (3.50-5.40) Hemoglobin 12.6 g/dL (12.0-15.5) Hematocrit 37.5 % (36.0-47.0) Mean Corpuscular Volume 93 fL (79-100) Mean Corpuscular Hemoglobin 31 pg (25-35) Mean Corpuscular Hemoglobin Concent 34 g/dL (31-37) Red Cell Distribution Width 13.8 % (11.5-14.5) Platelet Count 258 x10^3/uL (140-400) Neutrophils (%) (Auto) 41 % (31-73) Lymphocytes (%) (Auto) 50 % (24-48) Monocytes (%) (Auto) 7 % (0-9) Eosinophils (%) (Auto) 1 % (0-3) Basophils (%) (Auto) 1 % (0-3) Neutrophils # (Auto) 2.7 x10^3uL (1.8-7.7) Lymphocytes # (Auto) 3.3 x10^3/uL (1.0-4.8) Monocytes # (Auto) 0.5 x10^3/uL (0.0-1.1) Eosinophils # (Auto) 0.1 x10^3/uL (0.0-0.7) Basophils # (Auto) 0.0 x10^3/uL (0.0-0.2) Assessment and Plan Assessmemt and Plan Problems Medical Problems: (1) Appendicitis Status: Acute Comment Review of Relevant I have reviewed the following items carlos manuel (where applicable) has been applied. Labs Laboratory Tests Test 01/23/19 04:05 01/24/19 04:35 01/24/19 05:00 White Blood Count 13.8 x10^3/uL (4.0-11.0) 6.5 x10^3/uL (4.0-11.0) Red Blood Count 4.06 x10^6/uL (3.50-5.40) 4.04 x10^6/uL (3.50-5.40) Hemoglobin 12.5 g/dL (12.0-15.5) 12.6 g/dL (12.0-15.5) Hematocrit 37.6 % (36.0-47.0) 37.5 % (36.0-47.0) Mean Corpuscular Volume 93 fL (79-100) 93 fL (79-100) Mean Corpuscular Hemoglobin 31 pg (25-35) 31 pg (25-35) Mean Corpuscular Hemoglobin Concent 33 g/dL (31-37) 34 g/dL (31-37) Red Cell Distribution Width 13.8 % (11.5-14.5) 13.8 % (11.5-14.5) Platelet Count 275 x10^3/uL (140-400) 258 x10^3/uL (140-400) Neutrophils (%) (Auto) 79 % (31-73) 41 % (31-73) Lymphocytes (%) (Auto) 15 % (24-48) 50 % (24-48) Monocytes (%) (Auto) 6 % (0-9) 7 % (0-9) Eosinophils (%) (Auto) 0 % (0-3) 1 % (0-3) Basophils (%) (Auto) 0 % (0-3) 1 % (0-3) Neutrophils # (Auto) 10.8 x10^3uL (1.8-7.7) 2.7 x10^3uL (1.8-7.7) Lymphocytes # (Auto) 2.1 x10^3/uL (1.0-4.8) 3.3 x10^3/uL (1.0-4.8) Monocytes # (Auto) 0.8 x10^3/uL (0.0-1.1) 0.5 x10^3/uL (0.0-1.1) Eosinophils # (Auto) 0.0 x10^3/uL (0.0-0.7) 0.1 x10^3/uL (0.0-0.7) Basophils # (Auto) 0.0 x10^3/uL (0.0-0.2) 0.0 x10^3/uL (0.0-0.2) Sodium Level 141 mmol/L (136-145) Potassium Level 3.8 mmol/L (3.5-5.1) Chloride Level 107 mmol/L (98-107) Carbon Dioxide Level 25 mmol/L (21-32) Anion Gap 9 (6-14) Blood Urea Nitrogen 9 mg/dL (7-20) Creatinine 0.5 mg/dL (0.6-1.0) Estimated GFR (Cockcroft-Gault) 137.4 Glucose Level 123 mg/dL (70-99) Calcium Level 7.8 mg/dL (8.5-10.1) Phosphorus Level 3.4 mg/dL (2.6-4.7) Magnesium Level 2.4 mg/dL (1.8-2.4) Albumin 2.5 g/dL (3.4-5.0) Laboratory Tests Test 01/24/19 04:35 01/24/19 05:00 Sodium Level 141 mmol/L (136-145) Potassium Level 3.8 mmol/L (3.5-5.1) Chloride Level 107 mmol/L (98-107) Carbon Dioxide Level 25 mmol/L (21-32) Anion Gap 9 (6-14) Blood Urea Nitrogen 9 mg/dL (7-20) Creatinine 0.5 mg/dL (0.6-1.0) Estimated GFR (Cockcroft-Gault) 137.4 Glucose Level 123 mg/dL (70-99) Calcium Level 7.8 mg/dL (8.5-10.1) Phosphorus Level 3.4 mg/dL (2.6-4.7) Magnesium Level 2.4 mg/dL (1.8-2.4) Albumin 2.5 g/dL (3.4-5.0) White Blood Count 6.5 x10^3/uL (4.0-11.0) Red Blood Count 4.04 x10^6/uL (3.50-5.40) Hemoglobin 12.6 g/dL (12.0-15.5) Hematocrit 37.5 % (36.0-47.0) Mean Corpuscular Volume 93 fL (79-100) Mean Corpuscular Hemoglobin 31 pg (25-35) Mean Corpuscular Hemoglobin Concent 34 g/dL (31-37) Red Cell Distribution Width 13.8 % (11.5-14.5) Platelet Count 258 x10^3/uL (140-400) Neutrophils (%) (Auto) 41 % (31-73) Lymphocytes (%) (Auto) 50 % (24-48) Monocytes (%) (Auto) 7 % (0-9) Eosinophils (%) (Auto) 1 % (0-3) Basophils (%) (Auto) 1 % (0-3) Neutrophils # (Auto) 2.7 x10^3uL (1.8-7.7) Lymphocytes # (Auto) 3.3 x10^3/uL (1.0-4.8) Monocytes # (Auto) 0.5 x10^3/uL (0.0-1.1) Eosinophils # (Auto) 0.1 x10^3/uL (0.0-0.7) Basophils # (Auto) 0.0 x10^3/uL (0.0-0.2) Microbiology 01/22/19 Urine Culture - Final, Complete 01/22/19 Urine Culture Result 1 (ELPIDIO) - Final, Complete Medications Current Medications Multi-Ingredient Mouthwash/Gargle (Gi Cocktail) 20 ml 1X ONCE SWSW Last administered on 01/22/19at 07:26; Start 01/22/19 at 06:45; Stop 01/22/19 at 06:47; Status DC Fentanyl Citrate (Fentanyl 2ml Vial) 50 mcg 1X ONCE IV Last administered on 01/22/19at 07:24; Start 01/22/19 at 06:45; Stop 01/22/19 at 06:47; Status DC Iohexol (Omnipaque 300 Mg/ml) 75 ml 1X ONCE IV Last administered on 01/22/19at 08:22; Start 01/22/19 at 08:15; Stop 01/22/19 at 08:16; Status DC Info (CONTRAST GIVEN -- Rx MONITORING) 1 each PRN DAILY PRN MC SEE COMMENTS; Start 01/22/19 at 08:15; Stop 01/24/19 at 08:14 Ondansetron HCl (Zofran) 4 mg PRN Q8HRS PRN IV NAUSEA/VOMITING; Start 01/22/19 at 09:15; Stop 01/23/19 at 09:14; Status DC Morphine Sulfate (Morphine Sulfate) 4 mg PRN Q2HR PRN IV PAIN; Start 01/22/19 at 09:15; Stop 01/23/19 at 09:14; Status DC Sodium Chloride 1,000 ml @ 100 mls/hr Q10H IV ; Start 01/22/19 at 09:11; Stop at 09:10; Status DC Piperacillin Sod/ Tazobactam Sod (Zosyn Per Pharmacy) 1 each PRN DAILY PRN MC SEE COMMENTS; Start 01/22/19 at 09:15 Piperacillin Sod/ Tazobactam Sod 3.375 gm/Sodium Chloride 50 ml @ 100 mls/hr Q6HRS IV Last administered on 01/24/19at 05:41; Start 01/22/19 at 10:00 Lactobacillus Rhamnosus (Culturelle) 1 cap BID PO Last administered on at 21:23; Start 01/22/19 at 10:00 Ondansetron HCl (Zofran) 4 mg PRN Q6HRS PRN IV NAUSEA/VOMITING; Start 01/22/19 at 09:45; Stop 01/22/19 at 18:00; Status DC Fentanyl Citrate (Fentanyl 2ml Vial) 25 mcg PRN Q5MIN PRN IV MILD PAIN; Start 01/22/19 at 09:45; Stop 01/22/19 at 20:00; Status DC Fentanyl Citrate (Fentanyl 2ml Vial) 50 mcg PRN Q5MIN PRN IV MODERATE TO SEVERE PAIN; Start 01/22/19 at 09:45; Stop 01/22/19 at 20:00; Status DC Morphine Sulfate (Morphine Sulfate) 1 mg PRN Q10MIN PRN IV SEVERE PAIN; Start 01/22/19 at 09:45; Stop 01/22/19 at 20:00; Status DC Ringer's Solution 1,000 ml @ 30 mls/hr Q24H IV Last administered on 01/22/19at 09:58; Start 01/22/19 at 09:37; Stop 01/22/19 at 21:36; Status DC Lidocaine HCl (Xylocaine-Mpf 1% 2ml Vial) 2 ml 1X PRN PRN ID IV START; Start at 09:45; Stop 01/22/19 at 20:00; Status DC Hydromorphone HCl (Dilaudid) 0.5 mg PRN Q10MIN PRN IV SEV PAIN, Second choice; Start 01/22/19 at 09:45; Stop 01/22/19 at 20:00; Status DC Prochlorperazine Edisylate (Compazine) 5 mg PACU PRN PRN IV NAUSEA, MRX1; Start 01/22/19 at 09:45; Stop 01/22/19 at 20:00; Status DC Bupivacaine HCl/ Epinephrine Bitart (Sensorcaine-Epi 0.25%-1:432378 Mpf) 30 ml STK-MED ONCE .ROUTE ; Start 01/22/19 at 09:04; Stop 01/22/19 at 10:04; Status DC Midazolam HCl (Versed) 2 mg STK-MED ONCE .ROUTE ; Start 01/22/19 at 10:16; Stop 01/22/19 at 10:17; Status DC Fentanyl Citrate (Fentanyl 2ml Vial) 100 mcg STK-MED ONCE .ROUTE ; Start at 10:17; Stop 01/22/19 at 10:18; Status DC Rocuronium [place] (Zemuron) 50 mg STK-MED ONCE .ROUTE ; Start 01/22/19 at 10:17 ; Stop 01/22/19 at 10:18; Status DC Succinylcholine Chloride (Anectine) 200 mg STK-MED ONCE .ROUTE ; Start 01/22/19 at 10:18; Stop 01/22/19 at 10:19; Status DC Dexamethasone Sodium Phosphate (Decadron) 20 mg STK-MED ONCE .ROUTE ; Start 01/22 at 10:54; Stop 01/22/19 at 10:55; Status DC Neostigmine Methylsulfate (Neostigmine Methylsulfate) 5 mg STK-MED ONCE .ROUTE ; Start 01/22/19 at 10:56; Stop 01/22/19 at 10:57; Status DC Glycopyrrolate (Robinul) 1 mg STK-MED ONCE .ROUTE ; Start 01/22/19 at 10:57; Stop 01/22/19 at 10:58; Status DC Ceftriaxone Sodium (Rocephin) 1 gm Q24H IVP ; Start 01/22/19 at 11:00; Status UNV Phenylephrine HCl (PHENYLEPHRINE in 0.9% NACL PF) 1 mg STK-MED ONCE IV ; Start 01/22/19 at 11:10; Stop 01/22/19 at 11:11; Status DC Propofol 20 ml @ As Directed STK-MED ONCE IV ; Start 01/22/19 at 11:10; Stop 01/22 at 11:11; Status DC Lidocaine HCl (Lidocaine Pf 2% Vial) 5 ml STK-MED ONCE .ROUTE ; Start 01/22/19 at 11:10; Stop 01/22/19 at 11:11; Status DC Bupivacaine HCl/ Epinephrine Bitart (Sensorcaine-Epi 0.25%-1:079861 Mpf) 30 ml STK-MED ONCE IJ Last administered on 01/22/19at 11:35; Start 01/22/19 at 11:35; Stop 01/22/19 at 11:42; Status DC Fentanyl Citrate (Fentanyl 2ml Vial) 100 mcg STK-MED ONCE .ROUTE ; Start at 11:59; Stop 01/22/19 at 12:00; Status DC Prochlorperazine Edisylate (Compazine) 10 mg STK-MED ONCE .ROUTE ; Start at 11:59; Stop 01/22/19 at 12:00; Status DC Cefoxitin Sodium (Mefoxin) 1 gm Q8H IVP ; Start 01/22/19 at 12:00; Stop 01/22/19 at 12:05; Status DC Sodium Chloride (Normal Saline Flush) 3 ml QSHIFT PRN IV AFTER MEDS AND BLOOD DRAWS; Start 01/22/19 at 12:00 Morphine Sulfate (Morphine Sulfate) 2 mg PRN Q3HRS PRN IV PAIN; Start 01/22/19 at 12:00 Oxycodone/ Acetaminophen (Percocet 5/325) 1 tab PRN Q4HRS PRN PO MILD PAIN, 1ST CHOICE Last administered on 01/22/19at 16:50; Start 01/22/19 at 12:00 Oxycodone/ Acetaminophen (Percocet 5/325) 2 tab PRN Q4HRS PRN PO MODERATE PAIN , SEVERE PAIN; Start 01/22/19 at 12:00 Ketorolac Tromethamine (Toradol 15mg Vial) 15 mg Q6HRS IV Last administered on 01/23/19at 23:43; Start 01/22/19 at 13:00; Stop 01/24/19 at 12:59 Ondansetron HCl (Zofran) 4 mg PRN Q6HRS PRN IV NAUSEA, 1ST CHOICE; Start at 12:00 Dextrose/Lactated Ringer's 1,000 ml @ 75 mls/hr [id number] IV Last administered on 01/23/19at 23:05; Start 01/22/19 at 13:00 Potassium Chloride (Klor-Con) 40 meq 1X ONCE PO Last administered on 01/22/19at 20:51; Start 01/22/19 at 20:15; Stop 01/22/19 at 20:16; Status DC Potassium Chloride (Klor-Con) 40 meq 1X ONCE PO Last administered on 01/22/19at 23:28; Start 01/22/19 at 22:15; Stop 01/22/19 at 22:16; Status DC Vitals/I & O Vital Sign - Last 24 Hours 01/23/19 01/23/19 01/23/19 01/23/19 08:00 11:00 15:00 19:00 Temp 97.6 98.0 98.1 97.6 98.0 98.1 Pulse 72 76 73 Resp 20 22 B/P (MAP) 110/76 (87) 107/69 (82) 107/69 (82) Pulse Ox 98 97 98 O2 Delivery Room Air Room Air Room Air Room Air 01/23/19 01/23/19 01/24/19 20:01 23:00 03:00 Temp 98.4 98.2 98.4 98.2 Pulse 84 79 Resp 20 B/P (MAP) 108/71 (83) 101/68 (79) Pulse Ox 98 98 O2 Delivery Room Air Room Air Room Air Intake and Output 01/23/19 01/23/19 01/24/19 15:00 23:00 07:00 Intake Total 600 ml 360 ml Balance 600 ml 360 ml RAOUL GAN MD Jan 24, 2019 07:29
[2019-01-24] MEDS: LACTOBACILLUS RHAMNOSUS GG 1 CAPSULE. PO SCH (07:50)
--- NOTE | 2019-01-24 09:14 | PDOC ---
ALISON BHATIA OPEN CUT EXAMINER 01/24/19 0914: SURGICAL PROGRESS NOTE Subjective tolerating diet ambulating no pain Vital Signs Vital Signs Date Time Temp Pulse Resp B/P (MAP) Pulse Ox O2 Delivery O2 Flow Rate FiO2 01/24/19 07:00 97.7 81 16 113/79 (90) 98 Room Air 97.7 I&O Intake and Output 01/24/19 07:00 Intake Total 960 ml Balance 960 ml Intake Oral 960 ml # Voids 4 # Bowel Movements 1 General: Alert, Oriented X3, Cooperative, No acute distress Abdomen: Soft, No tenderness, Other (lap dressings dry ) Labs Laboratory Tests Test 01/23/19 04:05 01/24/19 04:35 01/24/19 05:00 White Blood Count 13.8 x10^3/uL (4.0-11.0) 6.5 x10^3/uL (4.0-11.0) Red Blood Count 4.06 x10^6/uL (3.50-5.40) 4.04 x10^6/uL (3.50-5.40) Hemoglobin 12.5 g/dL (12.0-15.5) 12.6 g/dL (12.0-15.5) Hematocrit 37.6 % (36.0-47.0) 37.5 % (36.0-47.0) Mean Corpuscular Volume 93 fL (79-100) 93 fL (79-100) Mean Corpuscular Hemoglobin 31 pg (25-35) 31 pg (25-35) Mean Corpuscular Hemoglobin Concent 33 g/dL (31-37) 34 g/dL (31-37) Red Cell Distribution Width 13.8 % (11.5-14.5) 13.8 % (11.5-14.5) Platelet Count 275 x10^3/uL (140-400) 258 x10^3/uL (140-400) Neutrophils (%) (Auto) 79 % (31-73) 41 % (31-73) Lymphocytes (%) (Auto) 15 % (24-48) 50 % (24-48) Monocytes (%) (Auto) 6 % (0-9) 7 % (0-9) Eosinophils (%) (Auto) 0 % (0-3) 1 % (0-3) Basophils (%) (Auto) 0 % (0-3) 1 % (0-3) Neutrophils # (Auto) 10.8 x10^3uL (1.8-7.7) 2.7 x10^3uL (1.8-7.7) Lymphocytes # (Auto) 2.1 x10^3/uL (1.0-4.8) 3.3 x10^3/uL (1.0-4.8) Monocytes # (Auto) 0.8 x10^3/uL (0.0-1.1) 0.5 x10^3/uL (0.0-1.1) Eosinophils # (Auto) 0.0 x10^3/uL (0.0-0.7) 0.1 x10^3/uL (0.0-0.7) Basophils # (Auto) 0.0 x10^3/uL (0.0-0.2) 0.0 x10^3/uL (0.0-0.2) Sodium Level 141 mmol/L (136-145) Potassium Level 3.8 mmol/L (3.5-5.1) Chloride Level 107 mmol/L (98-107) Carbon Dioxide Level 25 mmol/L (21-32) Anion Gap 9 (6-14) Blood Urea Nitrogen 9 mg/dL (7-20) Creatinine 0.5 mg/dL (0.6-1.0) Estimated GFR (Cockcroft-Gault) 137.4 Glucose Level 123 mg/dL (70-99) Calcium Level 7.8 mg/dL (8.5-10.1) Phosphorus Level 3.4 mg/dL (2.6-4.7) Magnesium Level 2.4 mg/dL (1.8-2.4) Albumin 2.5 g/dL (3.4-5.0) Laboratory Tests Test 01/24/19 04:35 01/24/19 05:00 Sodium Level 141 mmol/L (136-145) Potassium Level 3.8 mmol/L (3.5-5.1) Chloride Level 107 mmol/L (98-107) Carbon Dioxide Level 25 mmol/L (21-32) Anion Gap 9 (6-14) Blood Urea Nitrogen 9 mg/dL (7-20) Creatinine 0.5 mg/dL (0.6-1.0) Estimated GFR (Cockcroft-Gault) 137.4 Glucose Level 123 mg/dL (70-99) Calcium Level 7.8 mg/dL (8.5-10.1) Phosphorus Level 3.4 mg/dL (2.6-4.7) Magnesium Level 2.4 mg/dL (1.8-2.4) Albumin 2.5 g/dL (3.4-5.0) White Blood Count 6.5 x10^3/uL (4.0-11.0) Red Blood Count 4.04 x10^6/uL (3.50-5.40) Hemoglobin 12.6 g/dL (12.0-15.5) Hematocrit 37.5 % (36.0-47.0) Mean Corpuscular Volume 93 fL (79-100) Mean Corpuscular Hemoglobin 31 pg (25-35) Mean Corpuscular Hemoglobin Concent 34 g/dL (31-37) Red Cell Distribution Width 13.8 % (11.5-14.5) Platelet Count 258 x10^3/uL (140-400) Neutrophils (%) (Auto) 41 % (31-73) Lymphocytes (%) (Auto) 50 % (24-48) Monocytes (%) (Auto) 7 % (0-9) Eosinophils (%) (Auto) 1 % (0-3) Basophils (%) (Auto) 1 % (0-3) Neutrophils # (Auto) 2.7 x10^3uL (1.8-7.7) Lymphocytes # (Auto) 3.3 x10^3/uL (1.0-4.8) Monocytes # (Auto) 0.5 x10^3/uL (0.0-1.1) Eosinophils # (Auto) 0.1 x10^3/uL (0.0-0.7) Basophils # (Auto) 0.0 x10^3/uL (0.0-0.2) Problem List Problems Medical Problems: (1) Appendicitis Status: Acute Assessment/Plan s/p appy wbc 6.5 ok to dc home, FU 2 weeks JAMAL ATKINSON MD 01/24/19 1242: SURGICAL PROGRESS NOTE Assessment/Plan Agree with Sunni's assessment and plan. ALISON BHATIA OPEN CUT EXAMINER Jan 24, 2019 09:14 JAMAL ATKINSON MD Jan 24, 2019 12:42
[2019-01-24 11:00] VITALS: BP 126/81
--- NOTE | 2019-01-24 11:23 | PDOC3 ---
Discharge Summary Visit Information Date of Admission: Jan 22, 2019 Date of Discharge: Jan 24, 2019 Admitting Diagnosis: Acute appendicitis, sepsis, hypokalemia Final Diagnosis Problems Medical Problems: (1) Appendicitis Status: Acute Brief Hospital Course Allergies Allergies Coded Allergies Type Severity Reaction Last Updated Verified No Known Drug Allergies 01/22/19 No Vital Signs Vital Signs Date Time Temp Pulse Resp B/P (MAP) Pulse Ox O2 Delivery O2 Flow Rate FiO2 01/24/19 08:00 Room Air 01/24/19 07:00 97.7 81 16 113/79 (90) 98 97.7 Lab Results Laboratory Tests Test 01/23/19 04:05 01/24/19 04:35 01/24/19 05:00 White Blood Count 13.8 x10^3/uL (4.0-11.0) 6.5 x10^3/uL (4.0-11.0) Red Blood Count 4.06 x10^6/uL (3.50-5.40) 4.04 x10^6/uL (3.50-5.40) Hemoglobin 12.5 g/dL (12.0-15.5) 12.6 g/dL (12.0-15.5) Hematocrit 37.6 % (36.0-47.0) 37.5 % (36.0-47.0) Mean Corpuscular Volume 93 fL (79-100) 93 fL (79-100) Mean Corpuscular Hemoglobin 31 pg (25-35) 31 pg (25-35) Mean Corpuscular Hemoglobin Concent 33 g/dL (31-37) 34 g/dL (31-37) Red Cell Distribution Width 13.8 % (11.5-14.5) 13.8 % (11.5-14.5) Platelet Count 275 x10^3/uL (140-400) 258 x10^3/uL (140-400) Neutrophils (%) (Auto) 79 % (31-73) 41 % (31-73) Lymphocytes (%) (Auto) 15 % (24-48) 50 % (24-48) Monocytes (%) (Auto) 6 % (0-9) 7 % (0-9) Eosinophils (%) (Auto) 0 % (0-3) 1 % (0-3) Basophils (%) (Auto) 0 % (0-3) 1 % (0-3) Neutrophils # (Auto) 10.8 x10^3uL (1.8-7.7) 2.7 x10^3uL (1.8-7.7) Lymphocytes # (Auto) 2.1 x10^3/uL (1.0-4.8) 3.3 x10^3/uL (1.0-4.8) Monocytes # (Auto) 0.8 x10^3/uL (0.0-1.1) 0.5 x10^3/uL (0.0-1.1) Eosinophils # (Auto) 0.0 x10^3/uL (0.0-0.7) 0.1 x10^3/uL (0.0-0.7) Basophils # (Auto) 0.0 x10^3/uL (0.0-0.2) 0.0 x10^3/uL (0.0-0.2) Sodium Level 141 mmol/L (136-145) Potassium Level 3.8 mmol/L (3.5-5.1) Chloride Level 107 mmol/L (98-107) Carbon Dioxide Level 25 mmol/L (21-32) Anion Gap 9 (6-14) Blood Urea Nitrogen 9 mg/dL (7-20) Creatinine 0.5 mg/dL (0.6-1.0) Estimated GFR (Cockcroft-Gault) 137.4 Glucose Level 123 mg/dL (70-99) Calcium Level 7.8 mg/dL (8.5-10.1) Phosphorus Level 3.4 mg/dL (2.6-4.7) Magnesium Level 2.4 mg/dL (1.8-2.4) Albumin 2.5 g/dL (3.4-5.0) Laboratory Tests Test 01/24/19 04:35 01/24/19 05:00 Sodium Level 141 mmol/L (136-145) Potassium Level 3.8 mmol/L (3.5-5.1) Chloride Level 107 mmol/L (98-107) Carbon Dioxide Level 25 mmol/L (21-32) Anion Gap 9 (6-14) Blood Urea Nitrogen 9 mg/dL (7-20) Creatinine 0.5 mg/dL (0.6-1.0) Estimated GFR (Cockcroft-Gault) 137.4 Glucose Level 123 mg/dL (70-99) Calcium Level 7.8 mg/dL (8.5-10.1) Phosphorus Level 3.4 mg/dL (2.6-4.7) Magnesium Level 2.4 mg/dL (1.8-2.4) Albumin 2.5 g/dL (3.4-5.0) White Blood Count 6.5 x10^3/uL (4.0-11.0) Red Blood Count 4.04 x10^6/uL (3.50-5.40) Hemoglobin 12.6 g/dL (12.0-15.5) Hematocrit 37.5 % (36.0-47.0) Mean Corpuscular Volume 93 fL (79-100) Mean Corpuscular Hemoglobin 31 pg (25-35) Mean Corpuscular Hemoglobin Concent 34 g/dL (31-37) Red Cell Distribution Width 13.8 % (11.5-14.5) Platelet Count 258 x10^3/uL (140-400) Neutrophils (%) (Auto) 41 % (31-73) Lymphocytes (%) (Auto) 50 % (24-48) Monocytes (%) (Auto) 7 % (0-9) Eosinophils (%) (Auto) 1 % (0-3) Basophils (%) (Auto) 1 % (0-3) Neutrophils # (Auto) 2.7 x10^3uL (1.8-7.7) Lymphocytes # (Auto) 3.3 x10^3/uL (1.0-4.8) Monocytes # (Auto) 0.5 x10^3/uL (0.0-1.1) Eosinophils # (Auto) 0.1 x10^3/uL (0.0-0.7) Basophils # (Auto) 0.0 x10^3/uL (0.0-0.2) Brief Hospital Course Mrs Osei is a 38yo female who presented with abdominal pain, rated at 10/10. She has associated nausea, and leukocytosis, tachycardia, sepsis, found on a CAT scan showing she had appendicitis. To OR 4/5 for laparascopic appy Feeling ok today, still with some pain. Taking PO well, passing flatus. WBC still elevated POD#1, improved on POD#2. Potassium replaced. Denies leg swelling , SOB or CP. Acute appendicitis - resolved with lap appy Sepsis - resolved, no antibiotics on d/c home Hypokalemia - resolved Greater than 30 minutes spent on discharge. Home with percocet for pain, f/u with general surgery in 2 weeks Discharge Information Condition at Discharge: Improved Follow Up: Weeks (2) Disposition/Orders: D/C to Home RAOUL GAN MD Jan 24, 2019 11:23
[2019-01-24] MEDS ORDERED: OXYC1TAB15 PO (11:24)
--- NOTE | 2019-01-24 13:21 | NUR ---
Pt was discharged via wheelchair to home/self care. Pt was accompanied by children and . Pt received discharged instructions and prescription. Pt verbalized understanding of self care orders and follow up. Pt had no questions or concerns at this time.
--- NOTE | 2019-01-25 16:07 | PATHOLOGY ---
[facility] Accession Number: [id number] . 01 Material submitted: . APPENDIX . 01 Clinical history: . Acute appendicitis . 02 Diagnosis: Appendix, laparoscopic appendectomy: - Acute appendicitis with serosal exudate. (JPM:elidai; 01/25/2019) QMS/01/25/2019 . 02 Comment: There is no evidence of rupture. . 02 Electronically signed: . Deacon Mar MD, Pathologist NPI- [id number] . 01 Gross description: . The specimen is received in formalin, labeled "Mariadejesus Silostovar, appendix". Received is a vermiform appendix measuring 7.5 cm in length by 1.0 cm in diameter with a moderate amount of attached mesoappendix. The serosal surface is pink-hui appearance with a slight amount of overlying exudate present near the distal tip. The proximal margin is inked. Sectioning reveals a dilated lumen throughout filled with blood coagulum. No distinct nodules, lesions, or perforations are noted grossly. The specimen is submitted representatively in cassettes A1 and A2, with the proximal margin and bisected tip submitted in cassette A1. (CAA; 01/22/2019) QAC/QAC . 02 Pathologist provided ICD-10: K35.80 . 02 CPT . 464928 Specimen Comment: A courtesy copy of this report has been sent to Specimen Comment: [phone], , . Specimen Comment: Report sent to MARLEE Gu / DR AMBRIZ Performed at: [address], [place], [place] [id number] MD Bc Garza MD Phone: [phone] Performed at: 02 [facility] [address] [place], [place] [id number] MD Deacon Mar MD Phone: [phone]
== END 2019-01-24 12:30 | disposition home or self-care (01) | DRG 854 ==
LOC: ER 06:13 → 4 NORTH 09:39
PROVIDERS: ADMIT Internal Medicine; ATTEND Internal Medicine
PROC: 0DTJ4ZZ Resection of Appendix, Percutaneous Endoscopic Approach (ICD-10-PCS; principal; 2019-01-22 10:30)
DX: A41.9 Sepsis, unspecified organism (principal); K35.80 Unspecified acute appendicitis; N39.0 Urinary tract infection, site not specified; E87.6 Hypokalemia; Z90.711 Acquired absence of uterus with remaining cervical stump; Z79.899 Other long term (current) drug therapy; Z90.49 Acquired absence of other specified parts of digestive tract; Z82.49 Family history of ischemic heart disease and other diseases of the circulatory system; Z90.721 Acquired absence of ovaries, unilateral
CPT/HCPCS: 36415; 74177; 76705; 80053; 80069; 81001; 81025; 83690; 83735; 84484; 85007; 85025; 87086; 88304; 93005; 96374; 96375; A7015; J0330; J1100; J1885; J2001; J2250; J2370; J2543; J2704; J2710; J3010; J3490; J7030; J7120; Q9967; 99285-25